=== PATIENT | male | born 1990 | race Caucasian/White ===

== ENCOUNTER 2024-08-17 15:28 | Emergency (ER) | payer OTHER, SELFPAY ==
[2024-08-17 15:32] VITALS: BP 142/93
--- NOTE | 2024-08-17 16:15 | ED.GENMED ---
History of Present Illness
General
Chief Complaint: Headache
Source: patient
Time Seen by Provider: 08/17/24 15:57
History of Present Illness
History of Present Illness:
34yoM with a history of cluster headaches presenting for evaluation of intermittent headaches x 3 days. He reports waking up in the middle of the night with severe right sided head pain. This is associated with right nasal congestion and
intermittent eye tearing. The pain lasts for about 45 minutes before resolving. He had two episodes last night. Symptoms are identical to his previous cluster headaches. His typical headache 'cycle' lasts 6 weeks. He was previously seen by a
neurologist in [place] in 2018 and was prescribed verapamil which did not help. He has been headache free for about 3 years and does not currently see neurology. He has no pain currently. He is here requesting something to break his headache cycle.
Phy Exam
General Physical Exam
General Presentation: well appearing and no apparent distress
General age: appears stated age
General Skin: warm and dry
General Habitus: normal
General Mental: alert
General Hydration: appears well hydrated
ENT Exam
ENT Exam: normocephalic
Eye Exam
Eye Exam: PERRL
Pulmonary Exam
Pulmonary Exam: no respiratory distress
Neurological Exam
Neurological Exam: alert and no motor deficits
Ashia Coma Scale
Eye Opening: Spontaneous
Verbal Response: Oriented
Motor Response: Obeys Commands
GCS Total Score: 15
Skin Exam
Skin Exam: normal color and warm/dry
Psychiatric Exam
Psychiatric Exam: normal mood/affect
Course
Vital Signs
Initial and Last Documented VS:
Initial Vital Signs
Temp Pulse Resp BP Pulse Ox
98.2 F 84 18 142/93 99
08/17/24 15:32 08/17/24 15:32 08/17/24 15:32 08/17/24 15:32 08/17/24 15:32
Last Documented Vital Signs
Temp Pulse Resp BP Pulse Ox
98.2 F 68 18 141/89 99
08/17/24 15:32 08/17/24 16:20 08/17/24 16:20 08/17/24 16:20 08/17/24 16:20
MDM/Problems Addressed
Differential Diagnosis Includes:
34yoM here with intermittent headaches x 3 days. Hx of cluster headaches and this feels the same. No headache currently. He is requesting something to break his headache cycle. VSS. He is well appearing in no distress. No focal neuro deficits on
exam. Differential diagnosis includes but is not limited to: cluster headache, tension headache, migraines
Initial ED plan: Will place on high flow oxygen via NRB x 20 minutes and discuss with neurology.
*Critical Care Note
Total Time (30-74mins, 75-104mins- exclusive of procedures): Not Applicable
Update Note
Update Note:
Case discussed with neurologist, Dr. West. Neurology recommending discharging with prescription for PRN sumatriptan nasal spray as this is a very effective abortive therapy. No role for prophylactic medications unless headaches have been present
for >4 weeks. Recommendations were discussed with patient. He is requesting a prescription for home oxygen to use PRN. He was advised to f/u outpatient with PCP and neurology to discuss this. Patient also requesting a prescription for a Medrol dose
pack as this has helped him previously. This prescription was provided. Stressed the importance of outpatient f/u and ED return precautions discussed. Patient expressed understanding and is agreeable to plan. Patient discharged in stable condition.
ED Attending Note
-
Portions of this chart may have been created with voice recognition software.� Occasional wrong word or��sound alike� substitutions may have occurred due to the inherent limitations of voice recognition software.
Discharge Plan
Departure
Patient Disposition: Home (Routine Discharge)
Date of Disposition: 08/17/24
Time of Disposition: 17:28
Patient with high blood pressure during this ER visit?: Yes
Discharge Problem:
Cluster headache
Instructions: Cluster Headache (DC)
Prescriptions:
New
methylprednisolone [Medrol (Esau)] 4 mg tablets,dose pack
See Rx Instructions .ROUTE .COMPLEX Qty: 21 0RF
Rx Instructions:
orally per package directions
sumatriptan 20 mg/actuation spray,non-aerosol
20 mg intranasal Q2H PRN (Reason: cluster headache) Qty: 6 0RF
Referrals:
Sharlene West MD [Active] -
NONE,* [Family Provider] -
Activity Restrictions/Additional Instructions:
Use sumatriptan nasal spray as needed for cluster headaches. Avoid alcohol. Drink plenty of fluids and rest.
Please call on Monday to schedule a follow-up with a family doctor and neurology. Return to the ER with any new or worsening symptoms.
Interventions
Interventions:
*Risk Screen - Suicide Last Done: 08/17/24 16:19
*General Assessment Last Done: 08/17/24 16:19
*Neglect/Abuse Screening Last Done: 08/17/24 16:19
ED- Fall Risk Assessment Last Done: 08/17/24 16:31
*ED COVID-19 Vaccine History Last Done: 08/17/24 16:18
*Nursing Disposition Last Done: 08/17/24 17:42
ED- Neurological Assessment Last Done: 08/17/24 16:20
Discharge Date and Time
Discharge Date/Time: 08/17/24 17:42
Print Language: PERSIAN
[2024-08-17 16:18] VITALS: BMI 22.6
[2024-08-17 16:20] VITALS: BP 141/89
== END 2024-08-17 17:42 | disposition home or self-care (01) ==
LOC: EMR 15:28
PROVIDERS: EMERGENCY PHYSICIAN Student in an Organized Health Care Education/Training Program
DX: G44.009 Cluster headache syndrome, unspecified, not intractable (principal); R09.81 Nasal congestion; R03.0 Elevated blood-pressure reading, without diagnosis of hypertension
CPT/HCPCS: 99283